=== PATIENT | male | born 1980 | race Caucasian/White ===

== ENCOUNTER 2016-11-19 17:22 | Emergency (ER) | payer OTHER ==
[~2016-11-19] VITALS: Ht 180.3 cm; Wt 86.3 kg
[2016-11-19 17:32] VITALS: BP 131/79
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
== END 2016-11-19 19:11 | disposition home or self-care (01) ==
LOC: ER 17:22
DX: M54.6 Pain in thoracic spine (principal)
CPT/HCPCS: 99281